=== PATIENT | male | born 1980 | race Caucasian/White ===

== ENCOUNTER 2023-07-31 13:04 | Emergency (ER) | payer BC, SELFPAY ==
[2023-07-31 13:50] VITALS: BP 134/78; PULSE 53; RESP 16; TEMP 36.8; O2SAT 100; BMI 27.3
--- NOTE | 2023-07-31 14:03 | ED.GENADULT ---
HPI - General Adult General Chief complaint: Wound/Laceration Stated complaint: l thumb laceration Time Seen by Provider: 07/31/23 15:46 Source: patient and RN notes reviewed Mode of arrival: ambulatory Limitations: no limitations History of Present Illness HPI narrative: This is a 43-year-old male presenting to the emergency department with complaints of laceration to left thumb which occurred today. Patient states that he was using a machete to clear bushes, and he accidentally lacerated side of his left thumb. He is unsure when his last tetanus shot was. He is right handed. No other complaints or concerns at this time. MD complaint: Left thumb laceration Onset (ago): day(s) Radiation: non-radiation Relieving factors: none Exacerbating factors: none Associated symptoms: denies other symptoms Treatments prior to arrival: none Related Data Allergies Allergy/AdvReac Type Severity Reaction Status Date / Time No Known Allergies Allergy Verified 07/31/23 13:50 Review of Systems Review of Systems: Yes all other systems are reviewed and are negative [facility] Social History Social History Advance Directives: No Advance Directives Information Provided: No Physical Exam ED Vital Signs: Vital Signs - 24 hr 07/31/23 13:50 Temperature 98.2 F Pulse Rate 53 Respiratory Rate 16 Blood Pressure 134/78 Pulse Oximetry 100 Oxygen Delivery Method Room Air BMI result Body Mass Index 27.3 Const Other: General: Awake, alert, and oriented X3. No acute distress. HEENT: Normal inspection CVS: Normal heart rate and rhythm. Pulses normal. Respiratory: No respiratory distress Skin: Left thumb lateral aspect there is 1 mm superficial avulsion laceration noted, minimal active bleeding noted. Full range of motion of the finger. radial pulses 2+. Neuro: Oriented X 3. No motor deficit. No sensory deficit. Course Course Course Narrative: RME performed by Nat Baez PA-C. Patient is a 43 year old assigned male at presenting to the emergency department with a left thumb laceration. Patient placed back in the waiting room pending room availability and results. Medications Administered Discontinued Medications Generic Name Dose Route Start Last Admin Trade Name Freq PRN Reason Stop Dose Admin Diphtheria/Tetanus/Acell Pertussis 0.5 ml 07/31/23 14:03 07/31/23 16:40 Diphth,Pertus(Acell),Tet Adult 0.5 Ml Syringe IM 07/31/23 14:04 0.5 ml .ONCE ONE Administration Procedures Procedure Narrative Procedure Narrative: Wound soaked with saline and Betadine, wound closed with dermabond. Hemostasis achieved. Dressed with clean dressing. Patient tolerated procedure well without any complications or concerns. Medical Decision Making Medical Decision Making MDM Narrative: 43-year-old male presenting to the emergency department for evaluation of laceration to left thumb since today. On arrival, vital signs within normal limits. Patient has small superficial avulsion laceration noted to his left lateral thumb. Bleeding controlled. Wound was soaked in Betadine and saline for approximately 20 minutes. Tetanus was updated in department. Wound closed successfully with Dermabond, dressed with nonadherent dressing. Given return precautions. Patient understands and agrees with plan. Patient stable for discharge. Differential Diagnosis Differential Diagnoses: The differential diagnosis associated with the presentation includes Laceration, contusion, abrasion, foreign body-unlikely Discharge Plan Discharge Clinical Impression: Avulsion of skin Patient Disposition: Home, Self-Care Instructions: Skin Adhesive Care (ED) Additional Instructions: We applied skin adhesive to your thumb. Please do not submerge wound. Do not pick at skin glue. Allow skin glue to fall off on its own. Please watch for any increased signs of redness, swelling, drainage, fevers or chills. Please return if any of these occur. We updated your tetanus vaccine in the department today. If any new or worsening symptoms occur please return.
--- NOTE | 2023-07-31 17:23 | PC.NURSE ---
PT WAS EVALUATED AND DISCHARGED BY THE PROVIDER
== END 2023-07-31 17:15 | disposition home or self-care (01) ==
PROVIDERS: Emergency Provider Emergency Medicine
DX: S61.012A Laceration without foreign body of left thumb without damage to nail, initial encounter (principal); S60.312A Abrasion of left thumb, initial encounter; X58.XXXA Exposure to other specified factors, initial encounter; Y93.9 Activity, unspecified; Y92.9 Unspecified place or not applicable; Y99.9 Unspecified external cause status; Z23 Encounter for immunization
CPT/HCPCS: 12001; 90471; 90715; 99281; 99284